=== PATIENT | male | born 1970 | race Caucasian/White ===

== ENCOUNTER → 2019-04-17 12:43 | Outpatient (CLI) | payer SELFPAY ==
--- NOTE | 2019-04-17 12:51 | DI.US.S_ITS ---
PROCEDURE: US EXTREMELY NONVASC UPPER RT INDICATIONS: PENETRATING INJURY RIGHT HAND TECHNIQUE: Real-time scanning was performed of the dorsum of the right hand, with image documentation. COMPARISON: None. FINDINGS: No foreign body identified in the dorsum of the right hand. There is a mild amount of subcutaneous soft tissue swelling. IMPRESSION: No foreign body identified in the dorsum of the right hand. Dictated by: Musa Soni M.D. on 04/17/2019 at 13:31 Approved by: Musa Soni M.D. on 04/17/2019 at 13:34
== END ==
PROVIDERS: PCP Family Medicine; Visit Provider Registered Nurse
DX: S61.431A Puncture wound without foreign body of right hand, initial encounter (principal); M79.89 Other specified soft tissue disorders
CPT/HCPCS: 76882

== ENCOUNTER → 2022-01-10 11:36 | Outpatient (CLI) | payer OTHER, SELFPAY ==
[2022-01-10 14:07] LABS: Alanine Aminotransferase 30 IU/L (<50); Albumin 4.3 g/dL (3.5-5.0); Albumin Globulin Ratio 1.3 (1.0-2.8); Alkaline Phosphatase 72 U/L (38-126); Aspartate Aminotransferase 29 IU/L (17-59); BUN Creatinine Ratio 15.5 (6-22); Bilirubin Total 0.5 mg/dL (0.2-1.3); Blood Urea Nitrogen 16 mg/dL (9-20); Calcium 9.1 mg/dL (8.4-10.2); Carbon Dioxide 28 mmol/L (22-32); Chloride 105 mmol/L (98-107); Cholesterol 136 mg/dL (140-199); Estimated Glomerular Filt Rate > 60 mL/min (>60); Globulin 3.3 g/dL (1.7-4.1); Glucose 101 mg/dL (70-100); HDL Cholesterol 44 mg/dL (40-60); HEMOLYSIS < 15 (0-50); LDL Cholesterol Calculated 71 mg/dL (<100); Potassium 4.5 mmol/L (3.4-5.1); Sodium 142 mmol/L (137-145); Total Protein 7.6 g/dL (6.3-8.2); Triglycerides 104 mg/dL (35-150)
== END ==
PROVIDERS: PCP Internal Medicine; Referring Provider Internal Medicine; Visit Provider Internal Medicine
DX: K57.30 Diverticulosis of large intestine without perforation or abscess without bleeding (principal); Z13.6 Encounter for screening for cardiovascular disorders
CPT/HCPCS: 36415; 80053; 80061

== ENCOUNTER 2022-07-12 12:06 | Emergency (ER) | payer OTHER, SELFPAY ==
[2022-07-12 12:12] VITALS: BP 142/85; PULSE 86; RESP 15; TEMP 36.8; O2SAT 96; BMI 26.4
--- NOTE | 2022-07-12 12:16 | DI.RAD.S_ITS ---
PROCEDURE: XR CHEST 2V INDICATIONS: shortness of breath TECHNIQUE: 2 views of the chest were acquired. COMPARISON: None. FINDINGS: Surgical changes and devices: None. Lungs and pleura: Left lower lobe consolidative opacity is present. There may be a trace left pleural effusion. No pneumothorax. Mediastinum: Mediastinal contours are normal. Heart size is normal. Bones and chest wall: No suspicious bony abnormalities. Soft tissues appear unremarkable. IMPRESSION: Left lower lobe consolidative opacity could represent pneumonia and/or aspiration in the appropriate clinical setting. Imaging follow-up to ensure resolution is recommended, for example 6-8 weeks after completion of therapy. Dictated by: Sarwat Zamora M.D. on 07/12/2022 at 12:52 Approved by: Sarwat Zamora M.D. on 07/12/2022 at 12:55
[2022-07-12 12:37] LABS: Add Manual Diff / Slide Review NO; Basophils Absolute Auto 0 /uL (0-100); Basophils Percent Auto 0.2 % (0-2); Eosinophils Absolute Auto 0 /uL (0-450); Eosinophils Percent Auto 0.1 % (2-4); Hematocrit 42.4 % (41-53); Hemoglobin 14.4 g/dL (13.5-17.5); Lymphocytes Absolute Auto 1400 /uL (1100-4500); Lymphocytes Percent Auto 15.6 % (25-40); Mean Corpuscular HGB Conc 33.9 % (30-36); Mean Corpuscular Hemoglobin 29.8 PG (26-34); Mean Corpuscular Volume 87.7 fL (80-100); Monocytes Absolute Auto 1100 /uL (0-900); Monocytes Percent Auto 12.3 % (3-14); Neutrophils Absolute Auto 6200 /uL (1500-7000); Neutrophils Percent Auto 71.8 % (50-75); Platelet Count 223 X10^3/uL (150-400); Red Blood Cell Count 4.83 X10^6/uL (4.5-5.9); Red Cell Distribution Width 12.5 % (11.6-14.8); White Blood Cell Count 8.6 X10^3/uL (4.5-11.0)
[2022-07-12 12:46] LABS: Alanine Aminotransferase 22 IU/L (<50); Albumin 4.4 g/dL (3.5-5.0); Alkaline Phosphatase 85 U/L (38-126); Aspartate Aminotransferase 32 IU/L (17-59); BUN Creatinine Ratio 14.2 (6-22); Bilirubin Total 1.2 mg/dL (0.2-1.3); Blood Urea Nitrogen 15 mg/dL (9-20); Calcium 8.9 mg/dL (8.4-10.2); Carbon Dioxide 25 mmol/L (22-32); Chloride 99 mmol/L (98-107); Estimated Glomerular Filt Rate > 60 mL/min (>60); Globulin 4.2 g/dL (1.7-4.1); Glucose 125 mg/dL (70-100); HEMOLYSIS 25 (0-50); Potassium 4.2 mmol/L (3.4-5.1); Sodium 136 mmol/L (137-145); Total Protein 8.6 g/dL (6.3-8.2)
--- NOTE | 2022-07-12 12:51 | ED.GENADULT ---
HPI - General Adult General Chief complaint: Abdominal Pain Stated complaint: RT. side abd. pain /fever Time Seen by Provider: 07/12/22 12:44 Source: patient Mode of arrival: Ambulatory History of Present Illness HPI narrative: 52-year-old male here for evaluation of right-sided flank pain since yesterday. He states that he did cough last evening. Subjective fevers. No urinary symptoms. No change in skin. No change in bowel habits. His symptoms are worse with palpation. Did take some Tylenol last evening without much improvement. No trauma. Has had diverticulitis in the past but he states this feels different than that. No chest pain. No shortness of breath. Related Data Previous Rx's Medication Instructions Recorded ciprofloxacin HCl 500 mg tablet 500 mg PO BID #20 tabs 11/27/21 metronidazole 500 mg tablet 500 mg PO TID #30 tabs 11/27/21 acyclovir 400 mg tablet 400 mg PO 5X DAILY #35 tabs 11/28/21 cyclobenzaprine 10 mg tablet 10 mg PO TID PRN muscle spasm #20 07/12/22 tabs hydrocodone 5 mg-acetaminophen 325 1 tab PO Q4-6H PRN pain #14 tabs 07/12/22 mg tablet Allergies Allergy/AdvReac Type Severity Reaction Status Date / Time amoxicillin [AMOXICILLIN] Allergy Mild RASH Verified 07/12/22 12:12 Review of Systems Constitutional Constitutional: Denies fever(s) Cardiovascular Cardiovascular: Denies chest pain and Denies dyspnea Respiratory Respiratory: Denies dyspnea Gastrointestinal Gastrointestinal: Reports system reviewed and no additional complaints, except as documented Genitourinary Genitourinary: Reports system reviewed and no additional complaints, except as documented Musculoskeletal Musculoskeletal: Reports system reviewed and no additional complaints, except as documented Integumentary/Breasts Skin/Breast: Reports system reviewed and no additional complaints, except as documented Neurologic Neurologic: Reports system reviewed and no additional complaints, except as documented Hematologic/Lymphatic On Anticoagulants: No Patient History Medical History Diverticular disease of colon Skin cancer Surgical History Anesthesia History of mandibular surgery (~2004) Family History Brother Cancer Grandfather Stroke Grandmother Cancer Grandfather History of heart disease Social History Smoking Status: Never smoker alcohol intake: current substance use type: does not use Smoking Status: Never smoker alcohol intake frequency: a few times a week Substance Use Type: does not use Exam Initial Vital Signs Initial Vital Signs: Vital Signs Temperature 98.3 F 07/12/22 12:12 Pulse Rate 86 07/12/22 12:12 Respiratory Rate 15 07/12/22 12:12 Blood Pressure 142/85 H 07/12/22 12:12 Pulse Oximetry 96 07/12/22 12:12 Oxygen Delivery Method 07/12/22 12:12 Const General: cooperative, comfortable and No ill appearing HENMT Head: normal to inspection and normocephalic Chest Chest: normal inspection of the chest Cardio Rate: regular rate Rhythm: regular rhythm GI Inspection: normal to inspection Palpation: soft and tender (Right upper quadrant) Back/Spine/Pelvis Back: CVA tenderness right Skin General: no rashes or lesions noted Neuro General: patient alert, patient awake, patient oriented x3 and moves all extremities Extrem General: normal to inspection and capillary refill normal Psych Appearance: grossly normal Course Orders Ordered: ED Orders 07/12/22 12:16 XR chest 2V Stat EKG-12 Lead Stat 07/12/22 12:20 Complete Blood Count AUTO DIFF Stat Comprehensive Metabolic Panel Stat Lactate (Lactic Acid) Stat 07/12/22 12:52 US abdomen limited Stat 07/12/22 14:48 CT abdomen pelvis w con Stat Discontinued Medications Cyclobenzaprine HCl (Cyclobenzaprine 10 Mg Tablet) 10 mg PO NOW ONE Stop: 07/12/22 16:08 Last Admin: 07/12/22 16:12 Dose: 10 mg Documented By: ANSHU Morphine Sulfate (Morphine 4 Mg/Ml Inj) 4 mg IV NOW ONE Stop: 07/12/22 14:49 Last Admin: 07/12/22 15:03 Dose: 4 mg Documented By: ANSHU Vital Signs Vital signs: Vital Signs - 8 hr 07/12/22 12:12 07/12/22 16:15 Temperature 98.3 F Pulse Rate 86 89 Respiratory Rate 15 18 Blood Pressure 142/85 H 152/91 H Pulse Oximetry 96 96 Oxygen Delivery Method Room Air Room Air Medical Decision Making Lab Data Lab results reviewed: Yes I reviewed the patient's lab results. Result diagrams: 07/12/22 12:20 07/12/22 12:20 Labs: Lab Results 07/12/22 07/12/22 07/12/22 Range/Units 12:20 12:20 12:20 WBC 8.6 (4.5-11.0) X10^3/uL RBC 4.83 (4.5-5.9) X10^6/uL Hgb 14.4 (13.5-17.5) g/dL Hct 42.4 (41-53) % MCV 87.7 (80-100) fL MCH 29.8 (26-34) PG MCHC 33.9 (30-36) % RDW 12.5 (11.6-14.8) % Plt Count 223 (150-400) X10^3/uL Neut % (Auto) 71.8 (50-75) % Lymph % (Auto) 15.6 L (25-40) % Lewis % (Auto) 12.3 (3-14) % Eos % (Auto) 0.1 L (2-4) % Baso % (Auto) 0.2 (0-2) % Neut # (Auto) 6200 (3054-7252) /uL Lymph # (Auto) 1400 (6740-2582) /uL Lewis # (Auto) 1100 H (0-900) /uL Eos # (Auto) 0 (0-450) /uL Baso # (Auto) 0 (0-100) /uL Sodium 136 L (137-145) mmol/L Potassium 4.2 (3.4-5.1) mmol/L Chloride 99 (98-107) mmol/L Carbon Dioxide 25 (22-32) mmol/L BUN 15 (9-20) mg/dL Creatinine 1.06 (0.66-1.25) mg/dL Estimated GFR > 60 (>60) mL/min BUN/Creatinine Ratio 14.2 (6-22) Glucose 125 H (70-100) mg/dL Lactate 1.0 (0.7-2.1) mmol/L Calcium 8.9 (8.4-10.2) mg/dL Total Bilirubin 1.2 (0.2-1.3) mg/dL AST 32 (17-59) IU/L ALT 22 (<50) IU/L Alkaline Phosphatase 85 (38-126) U/L Total Protein 8.6 H (6.3-8.2) g/dL Albumin 4.4 (3.5-5.0) g/dL Globulin 4.2 H (1.7-4.1) g/dL Albumin/Globulin Ratio 1.0 (1.0-2.8) Imaging Data Chest x-ray: Radiologist's Impression: [address] [address] XRay Report Signed Patient: Van Perez MR#: [id number] : 1970 Acct:[id number] Age/Sex: 52 / M Date of Service: 07/12/22 Loc: ED Accession Number: [id number] ?? Procedure: XR chest 2V Ordering Provider: Joe Shay D.O. PROCEDURE:? XR CHEST 2V ? INDICATIONS:? shortness of breath ? TECHNIQUE:? 2 views of the chest were acquired.? ? COMPARISON:? None. ? FINDINGS:? ? Surgical changes and devices:? None.? ? Lungs and pleura:? Left lower lobe consolidative opacity is present.? There may be a trace left pleural effusion.? No pneumothorax. ? Mediastinum:? Mediastinal contours are normal.? Heart size is normal.? ? Bones and chest wall:? No suspicious bony abnormalities.? Soft tissues appear unremarkable.? ? IMPRESSION:? Left lower lobe consolidative opacity could represent pneumonia and/or aspiration in the appropriate clinical setting.? Imaging follow-up to ensure resolution is recommended, for example 6-8 weeks after completion of therapy. ? ? Dictated by: Sarwat Zamora M.D. on 07/12/2022 at 12:52 ? ? Approved by: Sarwat Zamora M.D. on 07/12/2022 at 12:55? US - abdomen: Radiologist's Impression: [address] [address] Ultrasound Report Signed Patient: Van Perez MR#: [id number] : 1970 Acct:[id number] Age/Sex: 52 / M Date of Service: 07/12/22 Loc: ED Accession Number: [id number] ?? Procedure: US abdomen limited Ordering Provider: Joe Shay D.O. PROCEDURE: US ABDOMEN LIMITED ? INDICATIONS:? RUQ pain eval for GB pathology ? TECHNIQUE:? Real-time focused scanning was performed of the abdomen, with image documentation.? ? COMPARISON:? None. ? FINDINGS:? This study is limited by the patient's inability to lie flat or remain still for the images. ? The liver demonstrates normal size. The liver demonstrates generalized moderately increased echogenicity. This decreases ultrasound sensitivity for detection of hepatic masses.? ? No findings of gallstones or sludge are seen.? The gallbladder wall is not thickened, measuring 3 mm or less.? No specific pericholecystic fluid is seen.? The sonographic Lane sign is negative. ? There is no biliary dilatation, the common bile duct measures approximately 3 mm.? ? The pancreas is not seen. ? ? IMPRESSION:? Limited study demonstrating no gallbladder pathology. ? No biliary dilatation. ? The liver demonstrates increased echogenicity.? This finding is nonspecific, yet it is most commonly attributed to fatty infiltration.? ? ? Dictated by: Geovany Oliver M.D. on 07/12/2022 at 13:24 ? ? Approved by: Geovany Oliver M.D. on 07/12/2022 at 13:25 CT scan - abdomen/pelvis: Radiologist's Impression: [place] [address] CT Scan Report Signed Patient: Van Perez MR#: [id number] : 1970 Acct:[id number] Age/Sex: 52 / M Date of Service: 07/12/22 Loc: ED Accession Number: [id number] ?? Procedure: CT abdomen pelvis w con Ordering Provider: Joe Shay D.O. PROCEDURE:? CT ABDOMEN PELVIS W CON ? INDICATIONS:? Right sided abd pain ? TECHNIQUE:? After the administration of intravenous contrast, axial sections acquired from the lung bases to the pubic symphysis.? Coronal and sagittal reformats were performed.? For radiation dose reduction, the following was used:? automated exposure control, adjustment of mA and/or kV according to patient size.? ? COMPARISON:? [facility], CT, ABDOMEN/PELVIS WITH CONTRAST, 03/18/2011, 17:24. ? FINDINGS:? Image quality:? Excellent.? ? Lung bases:? Consolidation or atelectasis is present at the dependent lung bases bilaterally. Heart:? No significant findings. ? ABDOMEN: Liver:? Unremarkable.? ? Gallbladder:? Unremarkable.? ? Biliary ducts:? Unremarkable.? ? Pancreas:? Unremarkable.? ? Spleen:? Unremarkable.? ? Adrenal Glands:? Unremarkable.? ? Kidneys and Ureters:? Unremarkable.? ? ? Stomach and Bowel:? Stomach, small bowel loops, and colon are unremarkable.? There are scattered sigmoid diverticula. No evidence for diverticulitis.? The appendix is thin walled. Peritoneum:? No abnormal intraperitoneal fluid.? No free air.? ? Ventral Wall: ? No hernias.? Abdominal Nodes:? No retroperitoneal or mesenteric adenopathy by size criteria.? Vessels:? Aorta and inferior vena cava are normal in size.? ? PELVIS: Pelvic Organs:? Unremarkable.? ? Bladder:? Unremarkable.? ? Pelvic Nodes: No enlarged lymph nodes.? Miscellaneous:? There is a large left and a small right fat containing inguinal hernia. ? Bones:? Unremarkable.? IMPRESSION:? ? 1. No acute intra-abdominal findings.? Normal appendix.? Diverticulosis.? No acute diverticulitis. ? 2. Probable bilateral basilar atelectasis although consolidation could also be considered in the differential.? ? ? Dictated by: Serina Torre M.D. on 07/12/2022 at 15:47 ? ? Approved by: Serina Torre M.D. on 07/12/2022 at 15:55?? ECG Data Attestation: I personally reviewed and interpreted this ECG as follows: Interpretation: Sinus rhythm Ventricular rate is 71 Normal axis Normal QRS Normal QTC Artifact noted laterally. MDM Narrative Medical decision making narrative: Workup here in the emergency department is very reassuring. Unfortunately does not give a specific etiology of the patient's discomfort. He is no skin changes concerning for zoster. CT scan ultrasound labs are unremarkable. No signs of stones. No signs of pyelonephritis. No signs of rib fractures. Low concern for pneumonia given his presentation. I did discuss this with him. Will try symptom treatment with muscle relaxers as potentially is having spasms of his intercostal muscles and also pain medication. He was given return precautions and follow-up instructions. He expressed understanding and agreement. Discharge Plan Departure Patient Disposition: Home Clinical Impression: Acute right flank pain Instructions: DI for Flank Pain Activity Restrictions/Additional Instructions: I recommend that you use the medications like we discussed. If you develop a rash over the next couple days you do need to be re-evaluated in the emergency department also like we discussed. Return to the emergency department for any new or worsening symptoms. Prescriptions: New cyclobenzaprine 10 mg tablet 10 mg PO TID PRN (Reason: muscle spasm) Qty: 20 0RF hydrocodone-acetaminophen 5-325 mg tablet 1 tab PO Q4-6H PRN (Reason: pain) Qty: 14 0RF No Action acyclovir 400 mg tablet 400 mg PO 5X DAILY Qty: 35 1RF ciprofloxacin HCl 500 mg tablet 500 mg PO BID Qty: 20 1RF metronidazole 500 mg tablet 500 mg PO TID Qty: 30 1RF Referrals: Waylon Dudley MD [Primary Care Provider] - Visit Report Forms: Patient Portal/API
--- NOTE | 2022-07-12 12:52 | DI.US.S_ITS ---
PROCEDURE: US ABDOMEN LIMITED INDICATIONS: RUQ pain eval for GB pathology TECHNIQUE: Real-time focused scanning was performed of the abdomen, with image documentation. COMPARISON: None. FINDINGS: This study is limited by the patient's inability to lie flat or remain still for the images. The liver demonstrates normal size. The liver demonstrates generalized moderately increased echogenicity. This decreases ultrasound sensitivity for detection of hepatic masses. No findings of gallstones or sludge are seen. The gallbladder wall is not thickened, measuring 3 mm or less. No specific pericholecystic fluid is seen. The sonographic Lane sign is negative. There is no biliary dilatation, the common bile duct measures approximately 3 mm. The pancreas is not seen. IMPRESSION: Limited study demonstrating no gallbladder pathology. No biliary dilatation. The liver demonstrates increased echogenicity. This finding is nonspecific, yet it is most commonly attributed to fatty infiltration. Dictated by: Geovany Oliver M.D. on 07/12/2022 at 13:24 Approved by: Geovany Oliver M.D. on 07/12/2022 at 13:25
--- NOTE | 2022-07-12 14:48 | DI.CT.S_ITS ---
PROCEDURE: CT ABDOMEN PELVIS W CON INDICATIONS: Right sided abd pain TECHNIQUE: After the administration of intravenous contrast, axial sections acquired from the lung bases to the pubic symphysis. Coronal and sagittal reformats were performed. For radiation dose reduction, the following was used: automated exposure control, adjustment of mA and/or kV according to patient size. COMPARISON: [facility], CT, ABDOMEN/PELVIS WITH CONTRAST, 03/18/2011, 17:24. FINDINGS: Image quality: Excellent. Lung bases: Consolidation or atelectasis is present at the dependent lung bases bilaterally. Heart: No significant findings. ABDOMEN: Liver: Unremarkable. Gallbladder: Unremarkable. Biliary ducts: Unremarkable. Pancreas: Unremarkable. Spleen: Unremarkable. Adrenal Glands: Unremarkable. Kidneys and Ureters: Unremarkable. Stomach and Bowel: Stomach, small bowel loops, and colon are unremarkable. There are scattered sigmoid diverticula. No evidence for diverticulitis. The appendix is thin walled. Peritoneum: No abnormal intraperitoneal fluid. No free air. Ventral Wall: No hernias. Abdominal Nodes: No retroperitoneal or mesenteric adenopathy by size criteria. Vessels: Aorta and inferior vena cava are normal in size. PELVIS: Pelvic Organs: Unremarkable. Bladder: Unremarkable. Pelvic Nodes: No enlarged lymph nodes. Miscellaneous: There is a large left and a small right fat containing inguinal hernia. Bones: Unremarkable. IMPRESSION: 1. No acute intra-abdominal findings. Normal appendix. Diverticulosis. No acute diverticulitis. 2. Probable bilateral basilar atelectasis although consolidation could also be considered in the differential. Dictated by: Serina Torre M.D. on 07/12/2022 at 15:47 Approved by: Serina Torre M.D. on 07/12/2022 at 15:55
[2022-07-12] MEDS: MORPHINE 4 MG/ML INJ IV (15:03)
[2022-07-12] MEDS: CYCLOBENZAPRINE 10 MG TABLET PO (16:12)
[2022-07-12 16:15] VITALS: BP 152/91; PULSE 89; RESP 18; O2SAT 96
== END 2022-07-12 16:19 | disposition home or self-care (01) ==
PROVIDERS: Emergency Provider Emergency Medicine; PCP Internal Medicine
DX: R10.11 Right upper quadrant pain (principal); R50.9 Fever, unspecified
CPT/HCPCS: 36415; 71046; 74177; 76705; 80053; 83605; 85025; 93005; 93010; 96374; 99284; 99285; J2270; Q9967

== ENCOUNTER → 2022-07-23 16:02 | Outpatient (CLI) | payer OTHER, SELFPAY ==
[2022-07-23 17:34] LABS: Add Manual Diff / Slide Review NO; Basophils Absolute Auto 0 /uL (0-100); Basophils Percent Auto 0.6 % (0-2); Eosinophils Absolute Auto 0 /uL (0-450); Eosinophils Percent Auto 1.4 % (2-4); Hematocrit 36.8 % (41-53); Hemoglobin 12.5 g/dL (13.5-17.5); Lymphocytes Absolute Auto 600 /uL (1100-4500); Lymphocytes Percent Auto 17.9 % (25-40); Mean Corpuscular HGB Conc 33.9 % (30-36); Mean Corpuscular Hemoglobin 29.6 PG (26-34); Mean Corpuscular Volume 87.4 fL (80-100); Monocytes Absolute Auto 300 /uL (0-900); Monocytes Percent Auto 8.9 % (3-14); Neutrophils Absolute Auto 2600 /uL (1500-7000); Neutrophils Percent Auto 71.2 % (50-75); Platelet Count 458 X10^3/uL (150-400); Red Blood Cell Count 4.21 X10^6/uL (4.5-5.9); Red Cell Distribution Width 12.4 % (11.6-14.8); White Blood Cell Count 3.6 X10^3/uL (4.5-11.0)
[2022-07-23 17:41] LABS: D Dimer 1496 ng/ml (<500)
[2022-07-23 17:55] LABS: Alanine Aminotransferase 47 IU/L (<50); Albumin 3.7 g/dL (3.5-5.0); Albumin Globulin Ratio 0.9 (1.0-2.8); Alkaline Phosphatase 74 U/L (38-126); Amylase 80 U/L (30-110); Aspartate Aminotransferase 58 IU/L (17-59); BUN Creatinine Ratio 15.4 (6-22); Bilirubin Total 0.3 mg/dL (0.2-1.3); Blood Urea Nitrogen 16 mg/dL (9-20); C-Reactive Protein Quant 1.5 mg/dL (<1.0); Carbon Dioxide 26 mmol/L (22-32); Chloride 106 mmol/L (98-107); Estimated Glomerular Filt Rate > 60 mL/min (>60); Globulin 4.1 g/dL (1.7-4.1); Glucose 95 mg/dL (70-100); HEMOLYSIS < 15 (0-50); Lipase 134 U/L (23-300); Potassium 4.1 mmol/L (3.4-5.1); Sodium 142 mmol/L (137-145); Total Protein 7.8 g/dL (6.3-8.2)
[2022-07-23 18:21] LABS: Erythrocyte Sedimentation Rate 60 MM/HR (0-15)
== END ==
PROVIDERS: PCP Internal Medicine; Referring Provider Internal Medicine; Visit Provider Internal Medicine
DX: R04.2 Hemoptysis (principal); R10.11 Right upper quadrant pain; R10.13 Epigastric pain
CPT/HCPCS: 36415; 80053; 82150; 83690; 85025; 85379; 85651; 86140

== ENCOUNTER → 2022-07-24 10:25 | Outpatient (CLI) | payer OTHER, SELFPAY ==
--- NOTE | 2022-07-24 10:47 | DI.CT.S_ITS ---
PROCEDURE: CT ANGIO CHEST PE PROTOCOL INDICATIONS: hemoptysis TECHNIQUE: After the administration of intravenous contrast, 2 mm thick sections acquired from the pulmonary apices to the posterior costophrenic angles. 3-dimensional maximum intensity projection (MIP) coronal and sagittal reformats were then acquired through the thorax. For radiation dose reduction, the following was used: automated exposure control, adjustment of mA and/or kV according to patient size. COMPARISON: [facility], CT, ABDOMEN/PELVIS WITH CONTRAST, 03/18/2011, 17:24. [facility], CT, CT ABDOMEN PELVIS W CON, 07/12/2022, 15:22. FINDINGS: Image quality: Excellent. Pulmonary arteries: Pulmonary arteries are normal in size, and demonstrate no intraluminal filling defects to suggest central pulmonary embolism. Lungs and pleura: There is a low-density right pleural effusion which is increased in size when compared with the prior CT dated July 12, 2022. Increased consolidation or compressive atelectasis is present in the dependent right lung base. 4 mm pulmonary nodule at the anterior right lung base is unchanged from the CT dated March 18, 2011. No new pulmonary nodules. No left-sided acute airspace opacities. No left pleural effusion. Mediastinum: Heart size is normal, without pericardial effusion. No mediastinal or hilar adenopathy. Thoracic aorta is normal in caliber and enhancement. Esophagus is normal in caliber, without hiatal hernia. Bones and chest wall: No suspicious bony lesions. Ribs and thoracic spine appear intact throughout. Thyroid gland is unremarkable. No axillary or supraclavicular adenopathy. Abdomen: Visualized upper abdominal solid organs appear normal in the early arterial phase of enhancement. IMPRESSION: 1. Increased right low-density pleural effusion and increased consolidation or compressive atelectasis at the right lung base when compared with the CT from July 12, 2022. These findings may be associated with worsening pneumonia. Follow-up to resolution is recommended to exclude underlying pulmonary neoplasm. Dictated by: Serina Torre M.D. on 07/24/2022 at 10:58 Approved by: Serina Torre M.D. on 07/24/2022 at 11:02
== END ==
PROVIDERS: PCP Internal Medicine; Referring Provider Internal Medicine; Visit Provider Internal Medicine
DX: J90 Pleural effusion, not elsewhere classified (principal); R04.2 Hemoptysis
CPT/HCPCS: 71275; Q9967

== ENCOUNTER → 2022-08-06 09:29 | Outpatient (CLI) | payer OTHER, SELFPAY ==
[2022-08-06 12:11] LABS: COVID19 -Nasal RAPID Negative (Negative)
== END ==
PROVIDERS: PCP Internal Medicine; Visit Provider Surgery
DX: Z20.822 Contact with and (suspected) exposure to COVID-19 (principal); Z01.812 Encounter for preprocedural laboratory examination
CPT/HCPCS: 87635; C9803

== ENCOUNTER 2022-08-07 08:14 | Day surgery (SDC) | payer OTHER, SELFPAY ==
--- NOTE | 2022-08-07 | PATH_ITS ---
[facility] Accession Number: [id number] . 01 Material submitted: . colon - CECUM POLYP . 01 Diagnosis: Cecum Polyp: Superficial portion of colorectal mucosa with benign lymphoid aggregates. MRV 08/09/2022 1300 Local . 01 Electronically signed: . Ivone Ewing MD, Pathologist NPI- [id number] . 01 Gross description: . CECUM POLYP: Received in formalin is 1 fragment(s) of ahumada, soft tissue measuring 0.3 x 0.2 x 0.2 cm submitted entirely in 1 cassette(s) /CPE 08/08/2022 0930 Local . 01 Pathologist provided ICD-10: Z12.11 . 01 CPT . 137509 Specimen Comment: A courtesy copy of this report has been sent to [phone] Performed at: 01 [facility] [address] [place] [address] [id number] MD Van Saini MD Phone: [phone]
[2022-08-07 08:21] VITALS: BP 149/94; PULSE 95; RESP 16; TEMP 36.5; O2SAT 97; BMI 25.4
[2022-08-07] MEDS: LACTATED RINGERS 1,000 ML 200 ML IV (08:37)
--- NOTE | 2022-08-07 08:42 | PM.HP.1 ---
History of Present Illness History of Present Illness Date Patient Seen: 08/07/22 Time Patient Seen: 08:42 Chief complaint: SCREENING COLONOSCOPY Narrative: The patient presents for colorectal screening. They have never had any previous examination for such. No personal or family history of colon cancer. He has a history of uncomplicated diverticulitis last episode was approximately 6 years ago. Currently no nausea, vomiting, abdominal pain, loss of appetite, change in bowel habits, diarrhea, constipation, melena, hematochezia, or bright red blood per rectum. Patient History Medical History Diverticular disease of colon Pneumonia involving right lung Skin cancer Surgical History Anesthesia History of mandibular surgery (~2004) Family & Social History Family History Brother Cancer Grandfather Stroke Grandmother Cancer Grandfather History of heart disease Social History: household members spouse Tobacco & Substance use: Smoking Status Never smoker alcohol intake current alcohol intake frequency a few times a week Substance Use Type does not use Meds Home Medications and Allergies Home Medications Medication Instructions Recorded Confirmed Type ciprofloxacin HCl 500 mg tablet 500 mg PO BID #20 tabs 11/27/21 08/07/22 Rx acyclovir 400 mg tablet 400 mg PO 5X DAILY #35 tabs 11/28/21 08/07/22 Rx azithromycin 250 mg tablet See Rx Instructions PO .COMPLEX #8 08/03/22 08/07/22 Rx tabs Allergies Allergy/AdvReac Type Severity Reaction Status Date / Time amoxicillin [AMOXICILLIN] Allergy Mild RASH Verified 08/07/22 08:35 Exam Vital Signs (past 8 hours): - 08/07/22 08:21 Temperature 97.7 F Pulse Rate 95 H Respiratory Rate 16 Blood Pressure 149/94 H Pulse Oximetry 97 Oxygen Delivery Method Room Air Oxygen Delivery Method Room Air Narrative Exam Narrative: General adult male alert oriented no acute distress Assessment & Plan Assessment & Plan narrative: The patient requires colorectal screening and colonoscopy is recommended. Technical details were discussed. Risks, benefits, alternatives explained. Risks including but not limited to myocardial infarction, aspiration, bleeding, pain, missed lesion, incomplete examination, need for further radiographic studies, colonic perforation, and need for major abdominal surgery were discussed. All questions were answered to their satisfaction, and they are in agreement with this plan. Time Spent With Patient Critical Care time: I spent a total of [] minutes of critical care time on this patient's care today; this time is exclusive of procedural time.
--- NOTE | 2022-08-07 08:44 | PM.OP.COLON ---
Operative Date/Time/Diagnoses Date of procedure: 08/07/22 Time of procedure: 08:44 Pre-op diagnosis: Screening colonoscopy Post-op diagnosis: same Procedure & Clinicians Study performed: Colonoscopy Same procedure as scheduled: Yes Indications: Screening Surgeon: Sukhi Stoner Procedure Notes Procedure in detail: The history and physical was performed/updated and the patient is ASA class is 2. The procedure was discussed in detail with the patient. Potential risks complications including infection, bleeding, missed diagnosis, perforation, need for surgery, and were explained. Their questions were answered and informed consent was obtained. Patient was brought to the procedure room and placed standard monitoring equipment. The patient's vital signs were monitored continuously throughout the entire procedure. Prior to starting time-out was performed. The patient was placed in the left lateral recumbent position. Procedural sedation was administered by anesthesia. Examination began with a thorough inspection of the perianal area there was no evidence of fissures, fistulae, external hemorrhoids or cutaneous malignancy. The colonoscopy scope was then placed into the anal canal and was advanced to the cecum, which was identified by the ileocecal valve, the appendiceal orifice and the confluence of the taenia. The scope was then slowly withdrawn examining colon thoroughly in all directions, irrigating it of any residual stool. FINDINGS 1. Quality of prep suboptimal 2. Cecum 3 mm polyp removed with biopsy forceps 3. Sigmoid mild diverticulosis The patient tolerated the procedure well. They will be discharged once criteria are met. The prep was of poor quality. The withdrawl time was 7 minutes. Specimen(s): other (Cecal polyp) Impression: Colonic polyp Post-procedure Recommendations: High fiber diet and Will call with biopsy results Plan for aftercare: Colonoscopy follow-up dependent on biopsy results Disposition: same day surgery
[2022-08-07 09:04] VITALS: BP 115/72; PULSE 78; RESP 18; TEMP 36.3; O2SAT 98
[2022-08-07 09:09] VITALS: BP 123/82; PULSE 74; RESP 16; O2SAT 97
[2022-08-07 09:13] VITALS: BP 134/88; PULSE 78; RESP 16; TEMP 37; O2SAT 98
[2022-08-07 09:20] VITALS: BP 137/97; PULSE 76; RESP 15; TEMP 37; O2SAT 98
== END 2022-08-07 09:43 | disposition home or self-care (01) ==
PROVIDERS: PCP Internal Medicine; Referring Provider Surgery; Visit Provider Surgery
PROC: 0DJD8ZZ Inspection of Lower Intestinal Tract, Via Natural or Artificial Opening Endoscopic (ICD-10-PCS; CPT 45378; principal; 2022-08-07 09:15)
DX: Z12.11 Encounter for screening for malignant neoplasm of colon (principal); K57.30 Diverticulosis of large intestine without perforation or abscess without bleeding
CPT/HCPCS: 45380; J2704; J3010

== ENCOUNTER → 2022-08-21 15:49 | Outpatient (CLI) | payer OTHER, SELFPAY ==
--- NOTE | 2022-08-21 15:51 | DI.RAD.S_ITS ---
PROCEDURE: XR CHEST 2V INDICATIONS: re-evaluate right lung pneumonia TECHNIQUE: 2 views of the chest were acquired. COMPARISON: [facility], CT, CT ANGIO CHEST PE PROTOCOL, 07/24/2022, 10:31. [facility], CR, XR CHEST 2V, 07/12/2022, 12:31. FINDINGS: Surgical changes and devices: None. Lungs and pleura: Lungs are clear. No pleural effusions or pneumothorax. Mediastinum: Mediastinal contours are normal. Heart size is normal. Bones and chest wall: No suspicious bony abnormalities. Soft tissues appear unremarkable. IMPRESSION: Resolved left lower lobe pneumonia. Previously seen right pleural effusion has resolved. Dictated by: Manuel HUMMEL Interpreted: Sarwat Fernandez MD on 08/21/2022 at 16:05 Transcribed by: MERRITT on 08/21/2022 at 16:06 Approved by: Sarwat Fernandez M.D. on 08/22/2022 at 20:56
== END ==
PROVIDERS: PCP Internal Medicine; Referring Provider Internal Medicine; Visit Provider Internal Medicine
DX: J18.9 Pneumonia, unspecified organism (principal)
CPT/HCPCS: 71046

== ENCOUNTER → 2022-12-28 15:38 | Outpatient (CLI) | payer OTHER, SELFPAY ==
--- NOTE | 2022-12-28 15:41 | DI.RAD.S_ITS ---
PROCEDURE: XR CHEST 2V INDICATIONS: chest pain left/luq pain TECHNIQUE: 2 views of the chest were acquired. COMPARISON: [facility], CR, XR CHEST 2V, 08/21/2022, 15:50. FINDINGS: Surgical changes and devices: None. Lungs and pleura: Lungs are clear. No pleural effusions or pneumothorax. Mediastinum: Mediastinal contours are normal. Heart size is normal. Bones and chest wall: No suspicious bony abnormalities. Soft tissues appear unremarkable. IMPRESSION: No acute cardiopulmonary process demonstrated radiographically. Dictated by: Fernando Augustin M.D. on 12/28/2022 at 16:11 Approved by: Fernando Augustin M.D. on 12/28/2022 at 16:11
[2022-12-28 16:16] LABS: Add Manual Diff / Slide Review NO; Basophils Absolute Auto 0 /uL (0-100); Basophils Percent Auto 0.9 % (0-2); Eosinophils Absolute Auto 0 /uL (0-450); Eosinophils Percent Auto 0.8 % (2-4); Hematocrit 42.8 % (41-53); Hemoglobin 14.3 g/dL (13.5-17.5); Lymphocytes Absolute Auto 800 /uL (1100-4500); Lymphocytes Percent Auto 26.2 % (25-40); Mean Corpuscular HGB Conc 33.4 % (30-36); Mean Corpuscular Hemoglobin 29.7 PG (26-34); Mean Corpuscular Volume 88.8 fL (80-100); Monocytes Absolute Auto 400 /uL (0-900); Neutrophils Absolute Auto 1800 /uL (1500-7000); Neutrophils Percent Auto 60.1 % (50-75); Platelet Count 209 X10^3/uL (150-400); Red Blood Cell Count 4.82 X10^6/uL (4.5-5.9); Red Cell Distribution Width 12.6 % (11.6-14.8); White Blood Cell Count 3.1 X10^3/uL (4.5-11.0)
[2022-12-28 16:33] LABS: Erythrocyte Sedimentation Rate 7 MM/HR (0-15)
[2022-12-28 16:52] LABS: Alanine Aminotransferase 33 IU/L (<50); Albumin 3.9 g/dL (3.5-5.0); Albumin Globulin Ratio 1.2 (1.0-2.8); Alkaline Phosphatase 68 U/L (38-126); Aspartate Aminotransferase 28 IU/L (17-59); BUN Creatinine Ratio 17.2 (6-22); Bilirubin Total 0.6 mg/dL (0.2-1.3); Blood Urea Nitrogen 16 mg/dL (9-20); Calcium 8.6 mg/dL (8.4-10.2); Carbon Dioxide 26 mmol/L (22-32); Chloride 107 mmol/L (98-107); Estimated Glomerular Filt Rate > 60 mL/min (>60); Globulin 3.2 g/dL (1.7-4.1); Glucose 109 mg/dL (70-100); HEMOLYSIS < 15 (0-50); Lipase 75 U/L (23-300); Potassium 4.4 mmol/L (3.4-5.1); Sodium 142 mmol/L (137-145); Total Protein 7.1 g/dL (6.3-8.2)
== END ==
LOC: LAB 15:39 → RAD 15:41
PROVIDERS: PCP Internal Medicine; Referring Provider Internal Medicine; Visit Provider Internal Medicine
DX: R07.9 Chest pain, unspecified (principal); R10.12 Left upper quadrant pain
CPT/HCPCS: 36415; 71046; 80053; 83690; 85025; 85651

== ENCOUNTER → 2023-10-30 11:03 | Outpatient (CLI) | payer OTHER, SELFPAY ==
[2023-10-30 12:06] LABS: Testosterone 273 ng/dL (71.8-623)
== END ==
LOC: LAB 11:04
PROVIDERS: PCP Internal Medicine; Referring Provider Internal Medicine; Visit Provider Internal Medicine
DX: Z01.89 Encounter for other specified special examinations (principal)
CPT/HCPCS: 36415; 84403

== ENCOUNTER → 2023-11-01 11:52 | Outpatient (CLI) | payer OTHER, SELFPAY ==
[2023-11-01 15:32] LABS: Urine N gonorrhoeae NOT DETECTED
[2023-11-01 15:44] LABS: Urine Chlamydia NOT DETECTED
== END ==
LOC: LAB 11:53
PROVIDERS: PCP Internal Medicine; Referring Provider Internal Medicine; Visit Provider Internal Medicine
DX: Z20.2 Contact with and (suspected) exposure to infections with a predominantly sexual mode of transmission (principal)
CPT/HCPCS: 87491; 87591

== ENCOUNTER → 2023-11-11 16:56 | Outpatient (CLI) | payer OTHER, SELFPAY ==
[2023-11-11 19:29] LABS: Alanine Aminotransferase 29 IU/L (<50); Albumin Globulin Ratio 1.1 (1.0-2.8); Alkaline Phosphatase 77 U/L (38-126); Aspartate Aminotransferase 33 IU/L (17-59); BUN Creatinine Ratio 17.4 (6-22); Bilirubin Total 0.5 mg/dL (0.2-1.3); Blood Urea Nitrogen 16 mg/dL (9-20); Calcium 8.8 mg/dL (8.4-10.2); Carbon Dioxide 25 mmol/L (22-32); Chloride 103 mmol/L (98-107); Estimated Glomerular Filt Rate > 60 mL/min (>60); Globulin 3.8 g/dL (1.7-4.1); Glucose 93 mg/dL (70-100); HEMOLYSIS 25 (0-50); Potassium 4.3 mmol/L (3.4-5.1); Sodium 139 mmol/L (137-145); Total Protein 7.8 g/dL (6.3-8.2)
[2023-11-11 19:37] LABS: Add Manual Diff / Slide Review NO; Basophils Absolute Auto 0 /uL (0-100); Basophils Percent Auto 0.4 % (0-2); Eosinophils Absolute Auto 0 /uL (0-450); Hematocrit 36.4 % (41-53); Hemoglobin 12.3 g/dL (13.5-17.5); Lymphocytes Absolute Auto 800 /uL (1100-4500); Lymphocytes Percent Auto 19.7 % (25-40); Mean Corpuscular HGB Conc 33.7 % (30-36); Mean Corpuscular Hemoglobin 29.7 PG (26-34); Mean Corpuscular Volume 88.2 fL (80-100); Monocytes Absolute Auto 500 /uL (0-900); Neutrophils Absolute Auto 2900 /uL (1500-7000); Neutrophils Percent Auto 67.9 % (50-75); Platelet Count 189 X10^3/uL (150-400); Red Blood Cell Count 4.13 X10^6/uL (4.5-5.9); Red Cell Distribution Width 13.3 % (11.6-14.8); White Blood Cell Count 4.3 X10^3/uL (4.5-11.0)
[2023-11-11 19:45] LABS: Free T4, Direct Thyroxine 0.94 ng/dL (0.78-2.19)
[2023-11-11 19:59] LABS: Thyroid Stimulating Hormone 2.95 uIU/mL (0.47-4.68)
[2023-11-12 09:38] LABS: HEMOLYSIS 19 (0-50); Iron 54 ug/dL (49-181)
[2023-11-12 09:48] LABS: Percent Iron Saturation 24 % (20-50); Total Iron Binding Capacity 223 ug/dL (261-462); Transferrin 179 mg/dL (206-381)
[2023-11-12 10:45] LABS: Folate 11.3 ng/mL (2.76-20.0); Vitamin B12 321 pg/mL (239-931)
[2023-11-19 12:16] LABS: Testosterone Free 2.79 ng/dL (5.00-21.00); Testosterone Total 146.9 ng/dL (264.0-916.0)
== END ==
PROVIDERS: PCP Internal Medicine; Referring Provider Internal Medicine; Visit Provider Internal Medicine
DX: R53.83 Other fatigue (principal); E03.9 Hypothyroidism, unspecified; D64.9 Anemia, unspecified
CPT/HCPCS: 36415; 80053; 82607; 82746; 83540; 83550; 84402; 84403; 84439; 84443; 85025

== ENCOUNTER → 2023-11-20 11:39 | Outpatient (CLI) | payer OTHER, SELFPAY ==
[2023-11-27 08:12] LABS: Percent Free Testosterone 2.32 % (1.50-4.20); Testosterone Free 4.57 ng/dL (5.00-21.00)
== END ==
PROVIDERS: PCP Internal Medicine; Referring Provider Internal Medicine; Visit Provider Internal Medicine
DX: E29.1 Testicular hypofunction (principal)
CPT/HCPCS: 36415; 84402; 84403

== ENCOUNTER → 2024-01-16 16:24 | Outpatient (CLI) | payer OTHER, SELFPAY ==
[2024-01-21 10:57] LABS: Percent Free Testosterone 3.85 % (1.50-4.20); Testosterone Free 24.11 ng/dL (5.00-21.00); Testosterone Total 626.2 ng/dL (264.0-916.0)
== END ==
PROVIDERS: PCP Internal Medicine; Referring Provider Internal Medicine; Visit Provider Internal Medicine
DX: E29.1 Testicular hypofunction (principal)
CPT/HCPCS: 36415; 84402; 84403

== ENCOUNTER → 2025-01-18 09:16 | Outpatient (CLI) | payer OTHER, SELFPAY ==
--- NOTE | 2025-01-18 09:17 | DI.CT.S_ITS ---
PROCEDURE: CT SINUS SCREEN WO CON INDICATIONS: CHRONIC PANSINUSITIS,POSTNASAL DRIP TECHNIQUE: Noncontrast 3.0 mm axial images acquired from the frontal sinuses to the mid-sella, with coronal and sagittal reformats. For radiation dose reduction, the following was used: automated exposure control, adjustment of mA and/or kV according to patient size. COMPARISON: None. FINDINGS: Image quality: Excellent. Maxillary Sinuses: No bony remodeling or destruction. Moderate maxillary sinus mucosal thickening with mucous retention cyst. Mild right maxillary sinus mucous thickening. Ethmoid Air Cells: No bony remodeling or destruction. Complete opacification on the left and near complete opacification on the right.. Sphenoid Sinuses: No bony remodeling or destruction. [id number] mucosal thickening. Frontal Sinuses: No bony remodeling or destruction. Mild mucosal thickening inferiorly. Ostiomeatal Complexes: Ostiomeatal complexes are opacified bilat. Small bilateral Mily cells. Miscellaneous: Maxillary hardware is noted. Visualized intra-orbital contents are normal. No benito bullosa or paradoxical turbinate curvature. Leftward nasal septal deviation. IMPRESSION: Diffuse paranasal sinus disease, most pronounced within the ethmoid air cells. Dictated by: Clarence Moyer M.D. on 01/18/2025 at 14:05 Approved by: Clarence Moyer M.D. on 01/18/2025 at 14:07
== END ==
LOC: CT 09:16
PROVIDERS: PCP Internal Medicine; Referring Provider Otolaryngology; Visit Provider Otolaryngology
DX: J32.4 Chronic pansinusitis (principal); R09.82 Postnasal drip; J34.89 Other specified disorders of nose and nasal sinuses
CPT/HCPCS: 70486

== ENCOUNTER → 2025-06-18 09:24 | Outpatient (CLI) | payer OTHER, SELFPAY ==
[2025-06-18 11:27] LABS: HIV 1 & 2 Ab/Ag 4th Gen Combo REACTIVE (NEGATIVE); Hep C Virus Ab w/Reflex Quant NEGATIVE s/c (NEGATIVE)
[2025-06-18 11:59] LABS: Urine N gonorrhoeae NOT DETECTED
[2025-06-18 12:02] LABS: Urine Chlamydia NOT DETECTED
[2025-06-22 12:13] LABS: HIV 1 RNA Reactive (Non Reactive); HIV 2 RNA Non Reactive (Non Reactive)
== END ==
LOC: LAB 09:25
PROVIDERS: PCP Internal Medicine; Referring Provider Internal Medicine; Visit Provider Internal Medicine
DX: A64 Unspecified sexually transmitted disease (principal)
CPT/HCPCS: 36415; 86592; 86803; 87389; 87491; 87535; 87538; 87591